=== PATIENT | male | born 1965 | race African-American/Black ===

== ENCOUNTER 2016-07-25 22:15 | Emergency (ER) | payer BC ==
[~2016-07-25] VITALS: Ht 175.3 cm; Wt 103.6 kg
[~2016-07-25 22:15] MED LIST: HYCODAN SYRUP480 ML PO; PREDNISONE10 MG PO
[2016-07-25] MEDS ORDERED: ZITHROMAX Z-PA250 MG PO (23:56)
[2016-07-25] MEDS ORDERED: TESSALON PERLE100 MG PO (23:56)
[2016-07-25] MEDS ORDERED: PREDNISONE10 M1 PO (23:56)
[2016-07-26 00:07] VITALS: BP 160/110
== END 2016-07-26 00:13 | disposition home or self-care (01) ==
LOC: EME 22:15
DX: J20.9 Acute bronchitis, unspecified (principal); I10 Essential (primary) hypertension
CPT/HCPCS: 99281; 99284; J7512

== ENCOUNTER 2017-05-20 07:14 | Emergency (ER) | payer BC ==
[~2017-05-20] VITALS: Ht 175.3 cm; Wt 105.2 kg
[~2017-05-20 07:14] MED LIST changes: +PREDNISONE10 M1 PO; +TESSALON PERLE100 MG PO; +ZITHROMAX Z-PA250 MG PO
[2017-05-20 10:54] VITALS: BP 121/84
[2017-05-20] MEDS ORDERED: TESSALON PERLE100 MG PO (10:59)
== END 2017-05-20 11:26 | disposition home or self-care (01) ==
LOC: EME 07:14
DX: J06.9 Acute upper respiratory infection, unspecified (principal); R03.0 Elevated blood-pressure reading, without diagnosis of hypertension
CPT/HCPCS: 99281; 99283